=== PATIENT | female | born 1990 | race Caucasian/White ===

== ENCOUNTER 2020-04-23 06:16 | Emergency (ER) | payer SELFPAY ==
[~2020-04-23] VITALS: Ht 170.2 cm; Wt 81.6 kg
[2020-04-23 06:19] VITALS: Ht 170.2 cm; Wt 81.6 kg
[2020-04-23 07:06] VITALS: BP 141/87
== END 2020-04-23 07:06 | disposition home or self-care (01) ==
LOC: ED 06:16
DX: F15.10 Other stimulant abuse, uncomplicated (principal); F41.9 Anxiety disorder, unspecified; F17.210 Nicotine dependence, cigarettes, uncomplicated; J45.909 Unspecified asthma, uncomplicated; Z88.5 Allergy status to narcotic agent; Z88.8 Allergy status to other drugs, medicaments and biological substances
CPT/HCPCS: 99406